=== PATIENT | male | born 1995 | race African-American/Black ===

== ENCOUNTER 2018-11-14 05:38 | Emergency (ER) | payer OTHER ==
[2018-11-14] MEDS ORDERED: Cyclobenzaprine 10 MG TAB ONE (06:14)
[2018-11-14 07:04] LABS: Bilirubin Negative (Negative); Blood, Urine Negative (Negative); Clarity CLEAR (Clear); Glucose, Urine (Dipstick) Negative (Negative); Leukocyte Negative (Negative); Nitrite Negative (Negative); Protein, Urine (Dipstick) Negative (Neg-Trace); Specific Gravity, Urine 1.024 (1.002-1.036); Urobilinogen 0.2 mg/dL (0.2-1.0)
--- NOTE | 2018-11-14 07:34 | RAD ---
2 views chest: 11/14/2018 COMPARISON: None HISTORY: Left upper back pain FINDINGS: No pneumothorax, pleural fluid, focal consolidation, or alveolar edema. Heart and mediastin al contours are unremarkable. IMPRESSION: No acute findings.
== END 2018-11-14 07:30 | disposition home or self-care (01) ==
LOC: ERS 05:38
DX: M54.5 Low back pain (principal); F17.210 Nicotine dependence, cigarettes, uncomplicated
CPT/HCPCS: 71046; 81003